=== PATIENT | male | born 1940 | race Caucasian/White ===

== ENCOUNTER 2016-12-11 08:30 | Day surgery (SDC) | payer MEDICARE, BC ==
[~2016-12-11 08:30] MED LIST: Buffered Lidocaine 0.9% SYRIN* 5 ML/SYR SYRINGE INTRADERM ONE; Bupivacaine 0.25% SDV* 30 ML ONE
[2016-12-11 09:59] VITALS: BP 109/73
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
== END 2016-12-11 10:11 | disposition home or self-care (01) ==
LOC: OREAST 08:30
PROVIDERS: ATTEND Orthopaedic Surgery Hand Surgery
DX: M60.231 Foreign body granuloma of soft tissue, not elsewhere classified, right forearm (principal); Z18.12 Retained nonmagnetic metal fragments
CPT/HCPCS: 88300